=== PATIENT | male | born 1970 | race Caucasian/White ===

== ENCOUNTER 2019-05-30 15:45 | Emergency (ER) | payer MEDICARE, MEDICAID ==
[2019-05-30 20:04] VITALS: BP 160/103
== END 2019-05-30 20:33 | disposition home or self-care (01) ==
LOC: ER 15:45
DX: M54.5 Low back pain (principal); G89.29 Other chronic pain; I10 Essential (primary) hypertension; Z76.0 Encounter for issue of repeat prescription